=== PATIENT | female | born 1960 | race Caucasian/White ===

== ENCOUNTER → 2016-11-10 | Outpatient (CLI) | payer MEDICAID, BC ==
--- NOTE | 2016-11-11 08:28 | MM ---
Reason for exam: screening (asymptomatic). Last mammogram was performed 1 year ago. History: Patient is postmenopausal. Took hormonal contraceptives for 4 years beginning at age 18. Physical Findings: A clinical breast exam by your physician is recommended on an annual basis and results should be correlated with mammographic findings. MG Screening Mammo w CAD Bilateral CC and MLO view(s) were taken. Prior study comparison: November 04, 2015, bilateral MG screening mammo w CAD. October 25, 2014, bilateral MG screening mammo w CAD. The breast tissue is heterogeneously dense. This may lower the sensitivity of mammography. No significant changes when compared with prior studies. ASSESSMENT: Benign, BI-RAD 2 RECOMMENDATION: Routine screening mammogram of both breasts in 1 year.
== END | disposition home or self-care (01) ==
LOC: RADMAMWWP 14:35
PROVIDERS: ATTEND Obstetrics & Gynecology
DX: Z12.31 Encounter for screening mammogram for malignant neoplasm of breast (principal)

== ENCOUNTER → 2017-12-02 | Outpatient (CLI) | payer MEDICAID, BC ==
--- NOTE | 2017-12-05 12:53 | MM ---
Reason for exam: screening (asymptomatic). Last mammogram was performed 1 year and 1 month ago. History: Patient is postmenopausal. Took hormonal contraceptives for 4 years beginning at age 18. Physical Findings: A clinical breast exam by your physician is recommended on an annual basis and results should be correlated with mammographic findings. MG 3D Screening Mammo W/Cad Bilateral CC and MLO view(s) were taken. Prior study comparison: November 10, 2016, bilateral MG screening mammo w CAD. November 04, 2015, bilateral MG screening mammo w CAD. The breast tissue is heterogeneously dense. This may lower the sensitivity of mammography. No significant changes when compared with prior studies. ASSESSMENT: Benign, BI-RAD 2 RECOMMENDATION: Routine screening mammogram of both breasts in 1 year.
== END | disposition home or self-care (01) ==
LOC: RADMAMWWP 14:32
PROVIDERS: ATTEND Obstetrics & Gynecology
DX: Z12.31 Encounter for screening mammogram for malignant neoplasm of breast (principal)
CPT/HCPCS: 77063; 77067

== ENCOUNTER → 2018-12-18 | Outpatient (CLI) | payer OTHER ==
--- NOTE | 2018-12-19 09:09 | MM ---
Reason for exam: screening (asymptomatic). Last mammogram was performed 1 year and 1 month ago. History: Patient is postmenopausal. Took hormonal contraceptives for 4 years beginning at age 18. Physical Findings: A clinical breast exam by your physician is recommended on an annual basis and results should be correlated with mammographic findings. MG 3D Screening Mammo W/Cad Bilateral CC and MLO view(s) were taken. Prior study comparison: December 02, 2017, bilateral MG 3d screening mammo w/cad. November 10, 2016, bilateral MG screening mammo w CAD. The breast tissue is heterogeneously dense. This may lower the sensitivity of mammography. Benign calcifications in the left breast. There is chronic nodularity in the right breast. ASSESSMENT: Benign, BI-RAD 2 RECOMMENDATION: Routine screening mammogram of both breasts in 1 year.
== END | disposition home or self-care (01) ==
LOC: RADMAMWWP 14:26
PROVIDERS: ATTEND Obstetrics & Gynecology
DX: Z12.31 Encounter for screening mammogram for malignant neoplasm of breast (principal)
CPT/HCPCS: 77063; 77067

== ENCOUNTER → 2019-01-23 | Outpatient (CLI) | payer OTHER ==
[2019-01-23 09:45] LABS: HCT 40.4 % (34.0-46.0); HGB 13.2 gm/dL (11.4-16.0); MCH 30.1 pg (25.0-35.0); MCHC 32.7 g/dL (31.0-37.0); MCV 92.1 fL (80.0-100.0); Mean Platelet Volume 7.2; Platelet Count 496 k/uL (150-450); RBC 4.39 m/uL (3.80-5.40); RDW 13.5 % (11.5-15.5); WBC 5.8 k/uL (3.8-10.6)
[2019-01-23 17:19] LABS: LDL Cholesterol,Calculated 130.4 mg/dL (0.0-131.0); VLDL Calculation 40.6 mg/dL (5.00-40.00)
[2019-01-23 17:27] LABS: T4, Free (Free Thyroxine) 1.1 ng/dL (0.80-1.80)
== END | disposition home or self-care (01) ==
LOC: LABWHC1 08:30
PROVIDERS: ATTEND Obstetrics & Gynecology
DX: Z13.1 Encounter for screening for diabetes mellitus (principal); Z13.220 Encounter for screening for lipoid disorders
CPT/HCPCS: 36415; 80061; 82947; 84439; 84443; 84479; 85027

== ENCOUNTER → 2019-02-19 | Outpatient (CLI) | payer OTHER ==
--- NOTE | 2019-02-19 16:06 | BD ---
EXAMINATION TYPE: Axial Bone Density DATE OF EXAM: 02/19/2019 COMPARISON: 10/25/2014 CLINICAL HISTORY: Osteopenia. Osteopenia screening. Height: 63 IN Weight: 122 LBS FRAX RISK QUESTIONS: Family History (Parent hip fracture): YES MOTHER RISK FACTORS HISTORY OF: Active: YES Postmenopausal woman: AGE 52 MEDICATIONS: Additional Medications: NONE EXAM MEASUREMENTS: Bone mineral densitometry was performed using the [employer] System. Bone mineral density as measured about the Lumbar spine is: ----- L1-L4(G/cm2): 1.263 T Score Values are as follows: ----- L2: 0.0 ----- L3: 0.9 ----- L4: 1.1 ----- L1-L4: 0.7 Bone mineral density has: Decreased -5.2% since study of: 10/25/2014 Bone mineral density about the R hip (g/cm2): 0.754 Bone mineral density about the L hip (g/cm2): 0.772 T Score values are as follows: -----R Neck: -2.0 -----L Neck: -1.9 -----R Total: -0.5 -----L Total: -0.5 Bone mineral density has: Decreased -8.2% since study of: 10/25/2014 IMPRESSION: Osteopenia (T Score between -2.5 and -1). There is slightly increased risk of fracture and the patient may be considered for treatment. Re-Screen 2-5 years. NOTE: T-SCORE=SD OF THE YOUNG ADULT MEAN.
== END ==
LOC: RADBDWWP 14:40
PROVIDERS: ATTEND Obstetrics & Gynecology
DX: M85.80 Other specified disorders of bone density and structure, unspecified site (principal)
CPT/HCPCS: 77080

== ENCOUNTER → 2020-03-11 | Outpatient (CLI) | payer OTHER ==
--- NOTE | 2020-03-12 08:25 | MM ---
Reason for exam: screening (asymptomatic). Last mammogram was performed 1 year and 3 months ago. History: Patient is postmenopausal. Took hormonal contraceptives for 4 years beginning at age 18. Physical Findings: A clinical breast exam by your physician is recommended on an annual basis and results should be correlated with mammographic findings. MG 3D Screening Mammo W/Cad Bilateral CC and MLO view(s) were taken. Prior study comparison: December 18, 2018, bilateral MG 3d screening mammo w/cad. December 02, 2017, bilateral MG 3d screening mammo w/cad. The breast tissue is heterogeneously dense. This may lower the sensitivity of mammography. There is no discrete abnormality. No significant changes when compared with prior studies. ASSESSMENT: Negative, BI-RAD 1 RECOMMENDATION: Routine screening mammogram of both breasts in 1 year.
== END | disposition home or self-care (01) ==
LOC: RADMAMWWP 07:14
PROVIDERS: ATTEND Obstetrics & Gynecology
DX: Z12.31 Encounter for screening mammogram for malignant neoplasm of breast (principal); N95.1 Menopausal and female climacteric states; Z13.220 Encounter for screening for lipoid disorders
CPT/HCPCS: 77063; 77067; 80061; 82306

== ENCOUNTER → 2020-12-16 | Outpatient (CLI) | payer OTHER ==
[2020-12-16 16:25] LABS: African American GFR (CKD) 91.6 (60.0-200.0); Albumin 4.5 g/dL (3.80-4.90); Albumin/Globulin Ratio 1.8 (1.60-3.17); Anion Gap 6.4 mmol/L (4.00-12.00); BUN/Creat Ratio 21.25 Ratio (12.00-20.00); Calcium 9.5 mg/dL (8.7-10.3); Carbon Dioxide 28.6 mmol/L (21.6-31.8); Chol/HDL Ratio 4.5; Globulin 2.5 g/dL (1.6-3.3); LDL Cholesterol,Calculated 132.6 mg/dL (0.0-131.0); Total Bilirubin 0.6 mg/dL (0.3-1.2); VLDL Calculation 56.4 mg/dL (5.00-40.00)
[2020-12-16 16:34] LABS: T4, Free (Free Thyroxine) 1.2 ng/dL (0.80-1.80)
[2020-12-16 19:15] LABS: Hemoglobin A1C 5.2 % (4.0-6.0)
== END | disposition home or self-care (01) ==
LOC: LABWHC1 08:45
PROVIDERS: ATTEND Internal Medicine Geriatric Medicine
DX: E78.2 Mixed hyperlipidemia (principal); R79.9 Abnormal finding of blood chemistry, unspecified; E03.9 Hypothyroidism, unspecified
CPT/HCPCS: 36415; 80053; 80061; 83036; 84439; 84443

== ENCOUNTER → 2021-05-12 | Outpatient (CLI) | payer OTHER ==
--- NOTE | 2021-05-12 13:00 | BD ---
EXAMINATION TYPE: Axial Bone Density DATE OF EXAM: 05/12/2021 COMPARISON: 02.19.2019 CLINICAL HISTORY: 60 YR OLD FEMALE.......ICD-10 CODE: M85.88 DISORDER OF BD Height: 62.8 Weight: 127 FRAX RISK QUESTIONS: Family History (Parent hip fracture): YES RISK FACTORS HISTORY OF: Family History of Osteoporosis: YES, MOTHER WITH HIP FX Active: YES Postmenopausal woman: YES, AT ABOUT 52 YRS OLD Hyperparathyroidism: NO Adrenal Insufficiency: NO MEDICATIONS: Additional Medications: CHOLESTEROL MEDS, MULTIVITAMIN, CALCIUM AND VIT D Additional History: CHOLESTEROL EXAM MEASUREMENTS: Bone mineral densitometry was performed using the [employer] System. Bone mineral density as measured about the Lumbar spine is: ----- L1-L4(G/cm2): 1.295 T Score Values are as follows: ----- L1: 0.4 ----- L2: -0.3 ----- L3: 1.7 ----- L4: 1.7 ----- L1-L4: 1.0 Bone mineral density has: Increased 3.2% SINCE...02.19.2019 STUDY Bone mineral density about the R hip (g/cm2): 0.963 Bone mineral density about the L hip (g/cm2): 0.967 T Score values are as follows: -----R Neck: -0.7 -----L Neck: -1.7 -----R Total: -0.4 -----L Total: -0.3 Bone mineral density has: Increased 2.1% SINCE....02.19.2019 STUDY FRAX%s: THERE IS A 17.0% CHANCE FOR A MAJOR OSTEOPOROTIC FX AND A 1.1% FOR HIP......PROBABILITY FOR FX IN 10 YRS TIME IMPRESSION: Osteopenia (T Score between -2.5 and -1). There is slightly increased risk of fracture and the patient may be considered for treatment. Re-Screen 2-5 years. NOTE: T-SCORE=SD OF THE YOUNG ADULT MEAN.
--- NOTE | 2021-05-13 11:22 | MM ---
Reason for exam: screening (asymptomatic). Last mammogram was performed 1 year and 2 months ago. History: Patient is postmenopausal. Took hormonal contraceptives for 4 years beginning at age 18. Physical Findings: A clinical breast exam by your physician is recommended on an annual basis and results should be correlated with mammographic findings. MG 3D Screening Mammo W/Cad Bilateral CC and MLO view(s) were taken. Prior study comparison: March 11, 2020, bilateral MG 3d screening mammo w/cad. December 18, 2018, bilateral MG 3d screening mammo w/cad. The breast tissue is heterogeneously dense. This may lower the sensitivity of mammography. Small group of microcalcifications upper outer left breast zone C appear to have increased. There is chronic nodularity bilaterally. There is no dominant lesion. ASSESSMENT: Incomplete: need additional imaging evaluation, BI-RAD 0 RECOMMENDATION: Special view mammogram of the left breast. [facility] will attempt to contact patient to return for supplemental views.
== END | disposition home or self-care (01) ==
LOC: RADMAMWWP 11:57
PROVIDERS: ATTEND Obstetrics & Gynecology
DX: Z12.31 Encounter for screening mammogram for malignant neoplasm of breast (principal); Z13.820 Encounter for screening for osteoporosis; Z78.0 Asymptomatic menopausal state
CPT/HCPCS: 77063; 77067; 77080

== ENCOUNTER → 2021-05-19 | Outpatient (CLI) | payer OTHER ==
--- NOTE | 2021-05-19 11:59 | MM ---
Reason for exam: additional evaluation requested from abnormal screening. Last mammogram was performed less than 1 month ago. History: Patient is postmenopausal. Took hormonal contraceptives for 4 years beginning at age 18. Physical Findings: Nurse did not find any significant physical abnormalities on exam. MG 3D Work Up W/Cad LT Spot compression CC and LM view(s) were taken of the left breast. Prior study comparison: May 12, 2021, bilateral MG 3d screening mammo w/cad. March 11, 2020, bilateral MG 3d screening mammo w/cad. December 18, 2018, bilateral MG 3d screening mammo w/cad. Finding: There are increased, round, grouped/clustered and fine calcifications in the upper outer quadrant, posterior middle position of the left breast 9cm from the nipple. New finding since May 12, 2021, March 11, 2020, and December 18, 2018. These results were verbally communicated with the patient and result sheet given to the patient on 05/19/21. ASSESSMENT: Suspicious, BI-RAD 4 RECOMMENDATION: Stereotactic core biopsy of the left breast. Called Dr. Suarez's office with mammographic findings and has scheduled an appointment for the patient for 06/11/21 at 8:[address] Asencio. Biopsy scheduled for 06/01/21 at 8:00. PRELIMINARY REPORT CALLED AND FAXED TO DR. ASENCIO ON 05/19/21.
== END | disposition home or self-care (01) ==
LOC: RADMAMWWP 10:20
PROVIDERS: ATTEND Obstetrics & Gynecology
DX: R92.1 Mammographic calcification found on diagnostic imaging of breast (principal); Z78.0 Asymptomatic menopausal state; Z79.3 Long term (current) use of hormonal contraceptives
CPT/HCPCS: 77061; 77065

== ENCOUNTER → 2021-06-01 | Day surgery (SDC) | payer OTHER ==
[2021-06-01 07:16] VITALS: RESP 16
[2021-06-01 08:42] VITALS: BP 174/78; PULSE 69; TEMP 98.2
--- NOTE | 2021-06-01 11:05 | MM ---
Stereotactic Mammotome core biopsy left breast. HISTORY: Left breast calcifications The calcifications in question within the left breast were targeted by the undersigned. Procedure was performed by the undersigned. Informed consent was obtained and all of the patients questions were answered. The standard sterile technique was utilized and appropriate local anesthesia was obtained with 1% licocaine. Mammotome probe was advanced and multiple core samples were obtained and sent to pathology for interpretation. Microclip marker was deployed at the site of biopsy. Post procedural mammogram demonstrates appropriate deployment of radiopaque clip marker. The patient tolerated the procedure well and left the department in stable condition. Pathology results are pending. IMPRESSION: Successful stereotactic core biopsy left breast with pathology results pending. Pathology Results: Benign LEFT BREAST, STEREOTACTIC NEEDLE CORE BIOPSY: Fibrocystic changes including cysts, fibrosis, moderate usual type ductal hyperplasia, apocrine metaplasia and calcifications. Recommendation Follow up mammogram of the left breast in 6 months. JEYSON
== END ==
LOC: RADMAMWWP 07:06
PROVIDERS: ATTEND Surgery
DX: N60.12 Diffuse cystic mastopathy of left breast (principal); N60.82 Other benign mammary dysplasias of left breast
CPT/HCPCS: 19081; 88305; A4648; J2001

== ENCOUNTER → 2021-12-30 | Outpatient (CLI) | payer OTHER ==
--- NOTE | 2021-12-30 13:21 | MM ---
Reason for exam: follow-up at short interval from prior study. Last mammogram was performed 7 months ago. History: Patient is postmenopausal. Benign MG stereo VAD BX LT of the left breast, June 01, 2021. Took hormonal contraceptives for 4 years beginning at age 18. Physical Findings: A clinical breast exam by your physician is recommended on an annual basis and results should be correlated with mammographic findings. MG 3D Diag Mammo W/Cad LT CC and MLO view(s) were taken of the left breast. Prior study comparison: May 19, 2021, left breast MG 3d work up w/cad LT. May 12, 2021, bilateral MG 3d screening mammo w/cad. The breast tissue is heterogeneously dense. This may lower the sensitivity of mammography. Previous mammotome biopsy in the right breast. No significant new findings when compared with previous films. Results were given to the patient verbally at the time of the exam. ASSESSMENT: Benign, BI-RAD 2 RECOMMENDATION: Return to routine screening mammogram schedule for both breasts.
== END | disposition home or self-care (01) ==
LOC: RADMAMWWP 12:49
PROVIDERS: ATTEND Surgery
DX: R92.8 Other abnormal and inconclusive findings on diagnostic imaging of breast (principal); Z78.0 Asymptomatic menopausal state
CPT/HCPCS: 77061; 77065

== ENCOUNTER → 2022-05-28 | Outpatient (CLI) | payer OTHER ==
--- NOTE | 2022-06-04 18:09 | MM ---
Reason for Exam: Screening (asymptomatic). Last mammogram was performed 1 year(s) and 1 month(s) ago. Patient History: Menarche at age 12. First Full-Term at age 19. Postmenopausal. Hormonal Contraceptives for 4 years from age 18 until age 22. 06/01/2021, Benign Core Biopsy on the left side. Risk Values: Edilia 5 year model risk: 1.5%. NCI Lifetime model risk: 6.5%. Prior Study Comparison: 05/12/2021 Bilateral Screening Mammogram, [facility]ED WITH [facility]. 05/19/2021 Left Diagnostic Mammogram, MERGED WITH [facility]. 12/30/2021 Left Diagnostic Mammogram, MERGED WITH [facility]. Tissue Density: The breast tissue is heterogeneously dense. This may lower the sensitivity of mammography. Findings: Analyzed By CAD. Left breast biopsy clip. There is no suspicious group of microcalcifications or new suspicious mass in either breast. Overall Assessment: Negative, BI-RAD 1 Management: Screening Mammogram of both breasts in 1 year. A clinical breast exam by your physician is recommended on an annual basis and results should be correlated with mammographic findings. Electronically signed and approved by: Júnior Batista DO
== END | disposition home or self-care (01) ==
LOC: RADMAMWWP 13:51
PROVIDERS: ATTEND Obstetrics & Gynecology
DX: Z12.31 Encounter for screening mammogram for malignant neoplasm of breast (principal); Z78.0 Asymptomatic menopausal state; Z98.890 Other specified postprocedural states
CPT/HCPCS: 77063; 77067

== ENCOUNTER → 2023-09-30 | Outpatient (CLI) | payer MEDICARE, BC ==
[2023-09-30 08:32] LABS: Basophils % (A) 1 %; Eosinophils # (A) 0.1 k/uL (0-0.7); Eosinophils % (A) 2 %; HCT 41.3 % (34.0-46.0); HGB 13.2 gm/dL (11.4-16.0); Lymphocytes # (A) 1.1 k/uL (1.0-4.8); Lymphocytes % (A) 31 %; MCH 29.3 pg (25.0-35.0); MCV 91.4 fL (80.0-100.0); Mean Platelet Volume 7.5; Monocytes # (A) 0.4 k/uL (0-1.0); Monocytes % (A) 10 %; Neutrophils # (A) 1.8 k/uL (1.3-7.7); Neutrophils % (A) 51 %; Platelet Count 298 k/uL (150-450); RBC 4.52 m/uL (3.80-5.40); RDW 12.9 % (11.5-15.5); WBC 3.4 k/uL (3.8-10.6)
[2023-09-30 08:39] LABS: ALT 24 U/L (4-34); AST 30 U/L (14-36); African American GFR (CKD) >90 (>60 ml/min/1.73 sqM); Albumin 4.3 g/dL (3.5-5.0); Alkaline Phosphatase 80 U/L (38-126); Anion Gap 10 mmol/L; Blood Urea Nitrogen 13 mg/dL (7-17); Calcium 9.3 mg/dL (8.4-10.2); Carbon Dioxide 27 mmol/L (22-30); Chloride 105 mmol/L (98-107); Glucose 87 mg/dL (74-99); Non-African American GFR(CKD) >90 (>60 ml/min/1.73 sqM); Potassium 4.6 mmol/L (3.5-5.1); Sodium 142 mmol/L (137-145); Total Bilirubin 0.6 mg/dL (0.2-1.3); Total Protein 8.4 g/dL (6.3-8.2)
[2023-09-30 08:56] LABS: T4, Free (Free Thyroxine) 1.18 ng/dL (0.78-2.19)
[2023-09-30 14:55] LABS: Chol/HDL Ratio 3.88 Ratio; LDL Cholesterol,Calculated 79.1 mg/dL (0.0-131.0)
--- NOTE | 2023-10-01 14:49 | BD ---
EXAMINATION TYPE: Axial Bone Density DATE OF EXAM: 09/30/2023 CLINICAL HISTORY: 63 years old Female. ICD-10 CODE: M81.0 AGE-RELATED OSTEOPOROSIS W/O CURRENT PATHO LO Height: 63" Weight: 126.9lbs FRAX RISK QUESTIONS: Alcohol (3 or more units per day): No Family History (Parent hip fracture): Yes, Mother Glucocorticoids (More than 3mos): No (Ex: prednisone, prednisolone, methylprednisolone, dexamethasone, and hydrocortisone). History of Fracture in Adulthood: No Secondary Osteoporosis: 1. Type 1 Diabetes: No 2. Hyperthyroidism: No 3. Menopause before 45: No 4. Malnutrition: No 5. Chronic liver disease: No Rheumatoid Arthritis: No Current Tobacco Use: No RISK FACTORS HISTORY OF: Hip Fracture (Right/Left): No Spine Fracture: No History of Wrist Fracture: No Surgery to Spine/Hip(right/left)/Wrist (right/left): No Family History of Osteoporosis: No Active: Yes Diet low in dairy products/other sources of calcium: No Postmenopausal woman: Yes Lost more than 2 inches in height since high school: No Frequent falls: No Poor Health: No Hyperparathyroidism: No Adrenal Insufficiency: No MEDICATIONS: Prednisone or other steroids: No Thyroid Medications: No Osteoporosis Medications: No Additional Medications: Vit D Additional History: N/A EXAM MEASUREMENTS: Bone mineral densitometry was performed using the [employer] System. Bone mineral density as measured about the Lumbar spine is: ----- L1-L4(G/cm2): 1.245 T Score Values are as follows: ----- L1: 0.6 ----- L2: -0.1 ----- L3: 1.1 ----- L4: 0.4 ----- L1-L4: 0.5 Z Score Values are as follows: ----- L1: 2.5 ----- L2: 1.7 ----- L3: 3.0 ----- L4: 2.2 ----- L1-L4: 2.4 Bone mineral density has: decreased -3.9% since study of: 05/12/2021 Bone mineral density about the R hip (g/cm2): 0.951 Bone mineral density about the L hip (g/cm2): 0.987 T Score values are as follows: -----R Neck: -2.1 -----L Neck: -1.6 -----R Total: -0.5 -----L Total: -0.2 Z Score values are as follows: -----R Neck: -0.4 -----L Neck: 0.0 -----R Total: 0.9 -----L Total: 1.2 Bone mineral density has: increased 0.4% since study of: 05/12/2021 FRAX%s: The graph provided illustrates a 19.4% chance for a major osteoporotic fx and a 1.9% chance f or the hips probability for fx in 10 years time. IMPRESSION: Osteopenia (T Score between -2.5 and -1). There is slightly increased risk of fracture and the patient may be considered for treatment. Re-Screen 2-5 years. NOTE: T-SCORE=SD OF THE YOUNG ADULT MEAN.
== END | disposition home or self-care (01) ==
LOC: RADBDWWP 07:45
PROVIDERS: ATTEND Internal Medicine Geriatric Medicine
DX: Z00.00 Encounter for general adult medical examination without abnormal findings (principal); M81.0 Age-related osteoporosis without current pathological fracture; E78.2 Mixed hyperlipidemia; E03.9 Hypothyroidism, unspecified; M85.89 Other specified disorders of bone density and structure, multiple sites
CPT/HCPCS: 77080; 80053; 80061; 82306; 84439; 84443; 85025

== ENCOUNTER → 2023-12-27 | Outpatient (CLI) | payer MEDICARE, BC ==
--- NOTE | 2023-12-29 14:42 | MM ---
Reason for Exam: Follow-up at short interval from prior study. Last screening mammogram was performed 7 month(s) ago. Patient History: Menarche at age 12. First Full-Term at age 19. Postmenopausal. Hormonal Contraceptives for 4 years from age 18 until age 22. 06/01/2021, Benign Core Biopsy on the left side. Risk Values: Edilia 5 year model risk: 1.6%. NCI Lifetime model risk: 6.1%. Tissue Density: Left: The breasts are heterogeneously dense, which may obscure small masses. Findings: Analyzed By CAD. No distinct mass or distortion. Continued six-month follow-up advised. Overall Assessment: Probably benign, BI-RAD 3 Management: Diagnostic Mammogram of both breasts in 6 months. . Results were given to the patient verbally at the time of exam. Patient should continue monthly self-breast exams. A clinical breast exam by your physician is recommended on an annual basis. This exam should not preclude additional follow-up of suspicious palpable abnormalities. Note on Edilia scores and lifetime risk: 1. A Edilia score greater than 3% is considered moderate risk. If this is the case, consider specialist referral to assess eligibility for a risk reducing agent. 2. If overall lifetime risk for the development of breast cancer is 20% or higher, the patient may qualify for future screening with alternating mammogram and breast MRI. Electronically signed and approved by: Brad Carvalho M.D. Radiologis
== END | disposition home or self-care (01) ==
LOC: RADMAMWWP 13:42
PROVIDERS: ATTEND Internal Medicine Geriatric Medicine
DX: R92.332 Mammographic heterogeneous density, left breast (principal); Z78.0 Asymptomatic menopausal state
CPT/HCPCS: 77065; G0279; 77061

== ENCOUNTER → 2024-03-02 | Outpatient (CLI) | payer MEDICARE, BC ==
[2024-03-02 17:13] LABS: ALT 12 U/L (8-44); AST 22 U/L (13-35); Albumin 4.3 g/dL (3.8-4.9); Albumin/Globulin Ratio 1.23 Ratio (1.60-3.17); Alkaline Phosphatase 74 U/L (41-126); BUN/Creat Ratio 21.62 Ratio (12.00-20.00); Blood Urea Nitrogen 17.3 mg/dL (9.0-27.0); Calcium 9.7 mg/dL (8.7-10.3); Carbon Dioxide 23.7 mmol/L (21.6-31.8); Chloride 106 mmol/L (96-109); Chol/HDL Ratio 4.09 Ratio; Creatine Kinase 34 U/L (26-186); Globulin 3.5 g/dL (1.6-3.3); Glucose 89 mg/dL (70-110); LDL Cholesterol,Calculated 72.9 mg/dL (0.0-131.0); Potassium 4.1 mmol/L (3.5-5.5); Sodium 141 mmol/L (135-145); Total Bilirubin 0.5 mg/dL (0.3-1.2); Total Protein 7.8 g/dL (6.2-8.2)
== END | disposition home or self-care (01) ==
LOC: LABWHC1 07:49
PROVIDERS: ATTEND Internal Medicine Geriatric Medicine
DX: E78.2 Mixed hyperlipidemia (principal); E03.9 Hypothyroidism, unspecified
CPT/HCPCS: 36415; 80053; 80061; 82550; 84443

== ENCOUNTER → 2024-06-28 | Outpatient (CLI) | payer MEDICARE, BC ==
--- NOTE | 2024-06-28 13:22 | MM ---
Reason for Exam: Follow-up at short interval from prior study. Last mammogram was performed 1 year(s) and 1 month(s) ago. Patient History: Menarche at age 12. First Full-Term at age 19. Postmenopausal. Hormonal Contraceptives for 4 years from age 18 until age 22. 06/01/2021, Benign Core Biopsy on the left side. Risk Values: Edilia 5 year model risk: 1.6%. NCI Lifetime model risk: 6.1%. Tissue Density: The breasts are heterogeneously dense, which may obscure small masses. Findings: Analyzed By CAD. No evidence for mass or distortion. No suspicious calcifications: Breast. Overall Assessment: Benign, BI-RAD 2 Management: Screening Mammogram of both breasts in 1 year. . Results were given to the patient verbally at the time of exam. Patient should continue monthly self-breast exams. A clinical breast exam by your physician is recommended on an annual basis. This exam should not preclude additional follow-up of suspicious palpable abnormalities. Note on Edilia scores and lifetime risk: 1. A Edilia score greater than 3% is considered moderate risk. If this is the case, consider specialist referral to assess eligibility for a risk reducing agent. 2. If overall lifetime risk for the development of breast cancer is 20% or higher, the patient may qualify for future screening with alternating mammogram and breast MRI. [facility], , 06/28/2024 1:18 PM. Electronically signed and approved by: Brad Carvalho M.D. Radiologis
== END | disposition home or self-care (01) ==
LOC: RADMAMWWP 12:48
PROVIDERS: ATTEND Internal Medicine Geriatric Medicine
DX: R92.2 Inconclusive mammogram
CPT/HCPCS: 77062; 77066

== ENCOUNTER → 2024-08-31 | Outpatient (CLI) | payer MEDICARE, BC ==
[2024-08-31 15:12] LABS: ALT 14 U/L (8-44); AST 22 U/L (13-35); Albumin 4.3 g/dL (3.8-4.9); Alkaline Phosphatase 69 U/L (41-126); BUN/Creat Ratio 20.38 Ratio (12.00-20.00); Blood Urea Nitrogen 16.3 mg/dL (9.0-27.0); Calcium 9.6 mg/dL (8.7-10.3); Carbon Dioxide 27.2 mmol/L (21.6-31.8); Chloride 104 mmol/L (96-109); Chol/HDL Ratio 3.71 Ratio; Globulin 3.9 g/dL (1.6-3.3); Glucose 91 mg/dL (70-110); LDL Cholesterol,Calculated 79.3 mg/dL (0.0-131.0); Potassium 4.7 mmol/L (3.5-5.5); Sodium 140 mmol/L (135-145); Total Bilirubin 0.4 mg/dL (0.3-1.2); Total Protein 8.2 g/dL (6.2-8.2)
[2024-08-31 17:02] LABS: Basophils # (A) 0.03 X 10*3/uL (0.00-0.10); Basophils % (A) 0.7 %; Eosinophils # (A) 0.05 X 10*3/uL (0.04-0.35); Eosinophils % (A) 1.1 %; HCT 40.9 % (37.2-46.3); HGB 12.6 g/dL (12.0-15.0); Lymphocytes # (A) 1.18 X 10*3/uL (0.90-5.00); Lymphocytes % (A) 26.8 %; MCHC 30.8 g/dL (32.0-37.0); MCV 94.2 FL (80.0-97.0); Mean Platelet Volume 10.5 FL (9.5-12.2); Monocytes # (A) 0.58 X 10*3/uL (0.20-1.00); Monocytes % (A) 13.2 %; NRBC Per 100 WBC 0 X 10*3/uL (0.00-0.01); Neutrophils # (A) 2.55 X 10*3/uL (1.80-7.70); Platelet Count 338 X 10*3/uL (140-440); RBC 4.34 X 10*6/uL (4.10-5.20); RDW 12.7 % (11.5-14.5)
== END | disposition home or self-care (01) ==
LOC: LABWHC1 10:27
PROVIDERS: ATTEND Physician Assistant
DX: E78.2 Mixed hyperlipidemia (principal)
CPT/HCPCS: 36415; 80053; 80061; 85025